=== PATIENT | female | born 1955 | race Caucasian/White ===

== ENCOUNTER 2021-04-02 21:11 | Inpatient (IN) | payer SELFPAY ==
[~2021-04-02] VITALS: Ht 154.9 cm; Wt 102.9 kg
[2021-04-03] VITALS (7 sets, daily range): BP systolic 116–151; BP diastolic 56–82; PULSE 68–105; TEMP 98.1–99
[2021-04-03] MEDS ORDERED: GLUCOPHAGE500 MG/TAB PO (00:42)
[2021-04-03] MEDS ORDERED: NORCO 325 MG-101 TAB PO (00:42)
[2021-04-03] MEDS ORDERED: ZOCOR 40MG40 MG PO (00:42)
[2021-04-03] MEDS ORDERED: LEXAPRO 10MG10 MG PO (00:43)
--- NOTE | 2021-04-03 01:05 | NUR ---
Direct admit to room 353 from [facility]. Oriented to room and policy. Noted to have INTs to right forearm and right hand. FLush without difficulty. JATINDER Daly at bedside for admission/dressing change. Right great toe noted to be necrotic/red/swollen/purulent drainage. Redressed by PA-wet to dry-4x4s and kerlix. Hydrocodone given per dr order for pain. Plan of care discussed to include antibiotics/q6 bedside glucose checks/pain control/calling for questions/concerns. Verbalizes understanding/denies needs. Call light in reach. Will monitor.
--- NOTE | 2021-04-03 02:00 | NUR ---
Spoke with hospitalist-JATINDER Bueno- about wound culture order. JATINDER just completed wet to dry dressing change on right great toe. States to wait for wound culture until AM when next dressing change done.
--- NOTE | 2021-04-03 03:17 | NUR ---
Vancomycin Initial Dosing Pharmacy Note Ordering provider: Carolina Romo MD Indication/duration: Osteomyelitis of toe/ 7 days Relevant comorbidities: DM LABS: (Outside labs) WBC = 13.8, SCr = 0.8 Recommendation: Will draw labs and follow results. Loading dose: 1.5 grams at OSH plus 500 mg. Maintenance dose: 1 gram every 12 hours Trough goal: 15-20 ug/mL
[2021-04-03 07:06] LABS: HEMOGLOBIN 11.6 g/dl (12.5-16.0); MEAN CELL VOLUME 85 fl (80.0-100.0); MEAN CORPUSCULAR HEMOGLOBIN 28 pg (27.0-31.0); MEAN CORPUSCULAR HGB CONC 33 g/dl (33.0-37.0); MEAN PLATELET VOLUME 9.6 fl (7.4-10.4); PLATELET COUNT 326 K/mm3 (130-400); RED BLOOD COUNT 4.15 M/mm3 (4.10-5.30); REDCELL DISTRIBUTION WIDTH-CV 12.8 % (11.5-14.5)
[2021-04-03 07:12] LABS: HEMATOCRIT 35.4 % (37.0-47.0)
[2021-04-03 07:20] LABS: CALCIUM 8.6 mg/dL (8.4-10.2); CREATININE, serum 0.54 (0.52-1.25); POTASSIUM 3.7 mmol/L (3.4-5.0)
[2021-04-03 08:37] LABS: BAND 2 % (0-10); EOSINOPHIL 2 % (0-4); LYMPHOCYTE 20 % (20.0-51.0); NEUTROPHILS 67 % (42.0-75.2); PLATELET ESTIMATE NORMAL (NORMAL)
[2021-04-03 08:41] LABS: ANISOCYTOSIS 1+
--- NOTE | 2021-04-03 12:46 | NUR ---
Chaplain coon and offered support with patient.
--- NOTE | 2021-04-03 14:51 | NUR ---
Vandana met with the pt who stated her perference to return home once mediclly stable. The pt is independent on all her ADls and uses a cane when needed. The pt lives alone in [place] and has a life partner, Dawit (ph# [phone]). The pt does not have a children. The pcp is Khoa López and she recieves her medication from [email or web address]. Pt has no issues obtaining her medications. The pt does not have a DPOA-HC and is not interested in one at this time. No other needs stated at this time. Sw to await further recommendations and follow up as needed. Discharge Plan: Home.
--- NOTE | 2021-04-03 18:00 | NUR ---
Patient has had an ok day. Scheduled medication given, shift assessment preformed. Patient has been experiencing pain in her right great toe. PRN [place] given througout shift to alleviate pain. IV antibiotics running as ordered. MRI cancelled per Dr. Sanders. Surgery scheduled for tomorrow morning at 1030. Consent signed and on the chart. Patient denies any further pain, discomfort, or needs at this time. Will continue to monitor. Call light in reach. at the bedside.
--- NOTE | 2021-04-03 20:00 | NUR ---
Report received, assumed care for night guard. Assessment complete. A&Ox3. Denies pain/nausea/shortness of breath. VS remain stable. Plan of care discussed for this shift to include HS meds/pain meds/antibioics/NPO at midnight. Dressing to right toe-CDI. Foot elevated on pillows. Verbalizes understanding/denies needs. Call light in reach. Will monitor.
--- NOTE | 2021-04-03 23:30 | NUR ---
Up to shower at this time. Dressing reapplied to right great toe-4x4/kerlix. Tolerated well.
[2021-04-04] VITALS (12 sets, daily range): BP systolic 112–160; BP diastolic 46–93; PULSE 72–92; TEMP 97.5–98.6
--- NOTE | 2021-04-04 03:37 | NUR ---
Resting eyes closed/CPAP on. NO s/s of pain or discomfort noted.
--- NOTE | 2021-04-04 06:35 | NUR ---
Rested well this shift. Received Hydrocodone x1 for pain. Has remained NPO since 0000. Dressing was changed to right great toe after shower. Denied nausea/shortness of breath. VS remained stable. Denies current needs. Call light in reach. Will monitor.
[2021-04-04 09:21] LABS: HEMOGLOBIN 11.3 g/dl (12.5-16.0); MEAN CELL VOLUME 87 fl (80.0-100.0); MEAN CORPUSCULAR HEMOGLOBIN 28 pg (27.0-31.0); MEAN CORPUSCULAR HGB CONC 33 g/dl (33.0-37.0); MEAN PLATELET VOLUME 9.4 fl (7.4-10.4); PLATELET COUNT 349 K/mm3 (130-400); RED BLOOD COUNT 4.01 M/mm3 (4.10-5.30); REDCELL DISTRIBUTION WIDTH-CV 13.1 % (11.5-14.5)
[2021-04-04 09:25] LABS: HEMATOCRIT 34.7 % (37.0-47.0)
[2021-04-04 09:27] LABS: CALCIUM 8.7 mg/dL (8.4-10.2); CREATININE, serum 0.57 (0.52-1.25); POTASSIUM 3.7 mmol/L (3.4-5.0)
[2021-04-04 10:34] LABS: EOSINOPHIL 2 % (0-4); LYMPHOCYTE 21 % (20.0-51.0); NEUTROPHILS 70 % (42.0-75.2); PLATELET ESTIMATE NORMAL (NORMAL)
--- NOTE | 2021-04-04 18:00 | NUR ---
Patient has had an eventful day. Scheduled medications given, assessment preformed. Patient had right great toe amputated. Since returning to the floor, VSS, patient denies any pain. Patient did have a nerve block and feeling has not returned to her right foot. Pulses, temp, color of extremity WNL. Will continue to monitor. Call light in reach.
--- NOTE | 2021-04-04 21:00 | NUR ---
PT IN BED. HAS RT FOOT ELEVATED ON PILLOWS, DRSG D/I. HAS DECREASED SENSATION TO LOWER EXTREMITIES R/T NEUROPATHY. IS ALERT AND ORIENTED X4. SL TO RT FOREARM, NO REDNESS OR SWELLING NOTED.
--- NOTE | 2021-04-04 22:44 | NUR ---
MEDICATED WITH NORCO FOR PAIN AND BURNING TO LEG AND BACK. IV ANTIBIOTICS INFUSING WITHOUT PROBLEM.
--- NOTE | 2021-04-05 04:00 | NUR ---
IV ANTIBIOTIC COMPLETE. PT HAS BEEN WEARING HER CPAP WHEN SLEEPING. DENIES NEEDS AT THIS TIME.
[2021-04-05 04:07] VITALS: BP 140/67; PULSE 89; TEMP 99.3
[2021-04-05 06:25] LABS: BASO # 0.1 (0.0-0.2); BASO % 0.6 % (0.0-2.0); EOS # 0.4 (0.0-0.7); EOS % 3.1 % (0-4.0); GRAN # 7.7 (1.4-6.5); GRAN % 59.8 % (42.2-75.2); HEMOGLOBIN 11.3 g/dl (12.5-16.0); LYMPH # 3.1 (1.2-3.4); LYMPH % 24.3 % (20.0-51.0); MEAN CELL VOLUME 86 fl (80.0-100.0); MEAN CORPUSCULAR HEMOGLOBIN 28 pg (27.0-31.0); MEAN CORPUSCULAR HGB CONC 32 g/dl (33.0-37.0); MEAN PLATELET VOLUME 9.1 fl (7.4-10.4); MONO # 1.5 (0.1-0.6); MONO % 11.4 % (1.7-9.3); PLATELET COUNT 326 K/mm3 (130-400); RED BLOOD COUNT 4.07 M/mm3 (4.10-5.30)
[2021-04-05 06:31] LABS: CALCIUM 8.6 mg/dL (8.4-10.2); CREATININE, serum 0.64 (0.52-1.25); POTASSIUM 3.5 mmol/L (3.4-5.0)
[2021-04-05 06:38] LABS: HEMATOCRIT 34.9 % (37.0-47.0)
--- NOTE | 2021-04-05 07:14 | NUR ---
Patient asleep in bed at this time. No signs of pain, discomfort, or futher needs at this time. Will continue to monitor. Call light in reach.
[2021-04-05 08:11] VITALS: BP 138/61; PULSE 79; TEMP 98.5
--- NOTE | 2021-04-05 10:39 | NUR ---
PATIENT IS CALM IN BED.DENIES PAIN.ASSESSMENT DONE.HAD A SESSION WITH PT.NO OTHER NEEDS AT THIS TIME.
[2021-04-05 11:19] VITALS: BP 142/82; PULSE 87; TEMP 98.5
[2021-04-05 16:00] VITALS: BP 149/66; PULSE 75; TEMP 98.6
--- NOTE | 2021-04-05 17:25 | NUR ---
Patient has had an ok day. Patient has C/O pain in her right ankle, PRN [place] given as ordered. Patient states that she is feeling better now that her blood sugars are at a manageable level. Zosyn running as ordered. Patient has not regained full sensation of the operative leg, but states that it is much improved from yesterday. Patient reports being able to feel light touch. Patient denies any futher pain, discomfort, SOA, or futher needs at this time. Will continue to monitor. Call light in reach. VSS.
[2021-04-05 19:37] VITALS: BP 156/73; PULSE 85; TEMP 98.6
--- NOTE | 2021-04-05 20:00 | NUR ---
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 Assessment complete. A&Ox3. Denies pain/nausea/shortness of breath. VS remain stable. INT to right forearm flushes without difficulty. Dressing to right foot CDI. Good CMS. Plan of care discussed for this shift to include HS meds/pain control/antibiotics/calling for questions/concerns. Call light in reach. Will monitor.
--- NOTE | 2021-04-05 22:30 | NUR ---
Called with c/o pain to right foot. Rating pain 8/10 on pain scale-described as constant throbbing. Hydrocodone given per dr order.
[2021-04-06 00:04] VITALS: BP 159/67; PULSE 73; TEMP 98.7
--- NOTE | 2021-04-06 01:21 | NUR ---
Called with c/o pain to right foot-rating pain 8/10 on pain scale-descrbied as constant throbbing. Morphine 2mg given per dr order.
--- NOTE | 2021-04-06 03:00 | NUR ---
Resting eyes closed. No s/s of pain/discomfort noted.
[2021-04-06 03:12] VITALS: BP 150/74; PULSE 81; TEMP 97.7
--- NOTE | 2021-04-06 06:14 | NUR ---
Called with c/o pain to right foot-rating pain 8/10 on pain scale-described as constant throbbing. Hydrocodone given per dr order.
[2021-04-06 07:29] LABS: BASO # 0.1 (0.0-0.2); BASO % 0.5 % (0.0-2.0); EOS # 0.5 (0.0-0.7); EOS % 4.1 % (0-4.0); GRAN # 6.4 (1.4-6.5); GRAN % 57.7 % (42.2-75.2); HEMOGLOBIN 11.2 g/dl (12.5-16.0); LYMPH # 2.7 (1.2-3.4); MEAN CELL VOLUME 86 fl (80.0-100.0); MEAN CORPUSCULAR HEMOGLOBIN 28 pg (27.0-31.0); MEAN CORPUSCULAR HGB CONC 33 g/dl (33.0-37.0); MEAN PLATELET VOLUME 9.2 fl (7.4-10.4); MONO # 1.4 (0.1-0.6); MONO % 12.3 % (1.7-9.3); PLATELET COUNT 340 K/mm3 (130-400); RED BLOOD COUNT 4.02 M/mm3 (4.10-5.30)
[2021-04-06 07:31] LABS: HEMATOCRIT 34.4 % (37.0-47.0)
[2021-04-06 07:42] LABS: CALCIUM 8.6 mg/dL (8.4-10.2); CREATININE, serum 0.66 (0.52-1.25); POTASSIUM 3.5 mmol/L (3.4-5.0)
[2021-04-06] MEDS ORDERED: GLUCOSE TEST ST1 DEV MC (08:01)
[2021-04-06] MEDS ORDERED: TRUE COMFORT P1 EAC1 MC (08:01)
[2021-04-06] MEDS ORDERED: LANCETS MC (08:01)
[2021-04-06] MEDS ORDERED: FREESTYLE PREC1 EAC5 MC ×2 (08:01→11:02)
[2021-04-06] MEDS ORDERED: BD ALCOHOL1 SWA TP (08:01)
[2021-04-06] MEDS ORDERED: CIPRO 500MG TA500 MG PO (08:27)
[2021-04-06] MEDS ORDERED: DOXYCYCLINE HY100 MG PO (08:27)
[2021-04-06 08:54] VITALS: BP 151/71; PULSE 75; TEMP 97.8
[2021-04-06] MEDS ORDERED: LEVEMIR FLEX100 U/ML SQ (10:56)
[2021-04-06] MEDS ORDERED: NORCO 325 MG-101 TAB PO (10:58)
--- NOTE | 2021-04-06 12:14 | NUR ---
Manager Enrollment attended clinical rounds with the team and patient to discharge home today. Patient will discharge home on insulin and Lachelle, pharmacist provided patient with a short term coupon to assist. BENITO collaborated with Lachelle about patient's insulin regemin. Patient is self pay and reports she normally can afford her medications. Patient reports she uses coupons she finds online and has an sriram called [id number] that also helps. Patient states she will be able to afford her antibiotics and pain medications today. Patient states she also needs a new glucometer but states this is something she can afford and purchase today upon discharge. Patient to have a follow up with Dr. López upon discharge. BENITO consulted [employer] Financial Counselor as patient is self pay. Patient reports no concerns with returning home today. Discharge Plan: Home
--- NOTE | 2021-04-06 16:00 | NUR ---
Scheduled medication given. Assessment preformed. PRN [place] given for 6/10 pain in right foot. IV DC'd catheter intact no signs of phlebitis. Dressing changed on right foot as ordered. Discharge education/instructions given. Patient denies any futher question or concerns. Patient escorted from building by [facility] via wheelchair. VSS.
--- NOTE | 2021-04-06 16:37 | NUR ---
Belongings retrieved from [facility] safe and given to CHRISTINE Cui.
== END 2021-04-06 16:00 | disposition home or self-care (01) | DRG 617 ==
LOC: MEDICAL 21:11
PROVIDERS: Orthopaedic Surgery; Physician Assistant; Student in an Organized Health Care Education/Training Program; ADMIT Student in an Organized Health Care Education/Training Program
PROC: 0Y6P0Z1 Detachment at Right 1st Toe, High, Open Approach (ICD-10-PCS; principal; 2021-04-04 13:00)
DX: E11.69 Type 2 diabetes mellitus with other specified complication (principal); M86.8X7 Other osteomyelitis, ankle and foot; E11.65 Type 2 diabetes mellitus with hyperglycemia; E11.40 Type 2 diabetes mellitus with diabetic neuropathy, unspecified; M19.90 Unspecified osteoarthritis, unspecified site; G47.33 Obstructive sleep apnea (adult) (pediatric); F32.9 Major depressive disorder, single episode, unspecified; E78.5 Hyperlipidemia, unspecified
CPT/HCPCS: 99223-AI; 99232-AI; 99239; J1815; J2250; J2270; J2405; J2543; J2704; J2795; J3010; J3370; J7030; J7050